=== PATIENT | male | born 1985 | race African-American/Black ===

== ENCOUNTER 2017-08-01 03:58 | Emergency (ER) | payer BC, OTHER ==
[~2017-08-01] VITALS: Ht 170.2 cm; Wt 77.1 kg
[~2017-08-01 03:58] MED LIST: [UNRECOGNIZED DRUG - OTHER]
--- NOTE | 2017-08-01 04:00 | NUR ---
Patient to ER bed 8 to gown for evaluation. Side rails up. Report given to Brandy SARGENT.
[2017-08-01 04:02] VITALS: BP_SYST 132
--- NOTE | 2017-08-01 04:05 | NUR ---
Patient to ER C/O SOB since 9 pm last night. Patient has Hx of asthma and states that he ran out of his inhaler. AAOx4, unlabored breathing, wheezes throughout, no signs of acute distress.
--- NOTE | 2017-08-01 04:06 | NUR ---
ER MD Phan at bedside evaluating the patient
[2017-08-01] MEDS ORDERED: methylPREDNISolone SOD SUCC/PF 62.5 MG/ML VIAL IM ONE (04:15)
[2017-08-01] MEDS ORDERED: IPRATROPIUM/ALBUTEROL SULFATE 3 ML AMPUL.NEB INH ONE ×2 (04:15→04:30)
--- NOTE | 2017-08-01 04:15 | NUR ---
RT at bedside for breathing treatment
--- NOTE | 2017-08-01 04:31 | NUR ---
RT at bedside for 2nd breathing treatment.
[2017-08-01 04:50] VITALS: BP_SYST 124
--- NOTE | 2017-08-01 04:50 | NUR ---
Patient given written and verbal discharge instructions and verbalizes understanding. ER MD discussed with patient the results and treatment provided. Patient in stable condition. ID arm band removed. Rx of Prednisone and Albuterol given. Patient educated on pain management and to follow up with PMD. Pain Scale 0/10. Opportunity for questions provided and answered.
== END 2017-08-01 04:50 | disposition home or self-care (01) ==
LOC: SED 03:58
DX: J45.901 Unspecified asthma with (acute) exacerbation (principal); Z88.0 Allergy status to penicillin
CPT/HCPCS: 94640; 96372; 99284; J2930